=== PATIENT | female | born 1965 | race Hispanic/Latino ===

== ENCOUNTER 2020-09-22 13:07 | Emergency (ER) | payer OTHER ==
[~2020-09-22] VITALS: Ht 149.9 cm; Wt 180.0 kg
[~2020-09-22 13:07] MED LIST: BL ADULT ASA81 MG PO; LOVASTATIN10 M1 PO; METFORMIN500 MG PO; METRONIDAZOL500 MG PO; NO HOME MEDS; PAROXETINE20 MG PO; PATANOL0.1 % OP; PRAVASTATIN SOD10 MG PO; PROVERA5 MG OR; ULTRAM50 M1 PO; ZOFRAN ODT4 MG OR; ZPAK OR
[2020-09-22] MEDS ORDERED: FLEXERIL5 MG PO (16:31)
[2020-09-22 16:50] VITALS: BP 131/83
== END 2020-09-22 16:50 | disposition home or self-care (01) | DRG 552 ==
LOC: ED 13:07
DX: S16.1XXA Strain of muscle, fascia and tendon at neck level, initial encounter (principal); S39.012A Strain of muscle, fascia and tendon of lower back, initial encounter; S46.911A Strain of unspecified muscle, fascia and tendon at shoulder and upper arm level, right arm, initial encounter; V49.40XA Driver injured in collision with unspecified motor vehicles in traffic accident, initial encounter

== ENCOUNTER 2022-07-31 06:18 | Emergency (ER) | payer BC ==
[~2022-07-31] VITALS: Ht 149.9 cm; Wt 90.0 kg
[~2022-07-31 06:18] MED LIST changes: +FLEXERIL5 MG PO
[2022-07-31 06:35] VITALS: BP 138/87
[2022-07-31] MEDS ORDERED: OFLOXACIN0.3 % OU (08:05)
[2022-07-31 08:11] VITALS: BP 138/87
== END 2022-07-31 08:23 | disposition home or self-care (01) | DRG 125 ==
LOC: ED 06:18
DX: H18.823 Corneal disorder due to contact lens, bilateral (principal)